=== PATIENT | female | born 1980 | race Caucasian/White ===

== ENCOUNTER 2019-05-09 18:33 | Emergency (ER) | payer MEDICAID ==
[~2019-05-09] VITALS: Ht 149.9 cm; Wt 99.1 kg
[~2019-05-09 18:33] MED LIST: NITR0.4T41 SL; [UNRECOGNIZED DRUG - REMARK]
[2019-05-09 18:40] VITALS: BP 150/85
--- NOTE | 2019-05-09 18:54 | NUR ---
REPORT TO MARY ARDON
== END 2019-05-09 19:25 | disposition home or self-care (01) ==
LOC: ED 18:50
DX: H66.001 Acute suppurative otitis media without spontaneous rupture of ear drum, right ear (principal); H92.03 Otalgia, bilateral
CPT/HCPCS: 99283

== ENCOUNTER 2020-04-10 17:26 | Emergency (ER) | payer MEDICAID ==
[~2020-04-10] VITALS: Ht 149.9 cm; Wt 102.3 kg
[2020-04-10 17:59] LABS: BASOPHILS % (AUTO) 1 % (0-1); EOSINOPHILS % (AUTO) 2 % (1-7); LYMPHOCYTES % (AUTO) 30 % (22-44); MEAN CORPUSCULAR HGB CONC 33.6 g/dL (32.4-35.8); MEAN PLATELET VOLUME 7.5 fL (7.4-10.4); MONOCYTES % (AUTO) 8 % (2-9); NEUTROPHILS % (AUTO) 60 % (42-75); PLATELET COUNT 408 x10^3/uL (130-400); RED BLOOD COUNT 4.68 x10^6/uL (3.82-5.3); RED CELL DISTRIBUTION WIDTH 14.8 % (9.6-15.2)
[2020-04-10 18:01] LABS: MD NO
[2020-04-10 18:11] LABS: ALANINE AMINOTRANSFERASE 26 U/L (12-78); ALBUMIN 3.5 g/dL (3.4-5.0); ANION GAP 6 mmol/L (5-15); CALCIUM 8.4 mg/dL (8.5-10.1); CHLORIDE 109 mmol/L (98-107); CREATININE 0.85 mg/dL (0.55-1.02)
[2020-04-10 18:16] LABS: ALKALINE PHOSPHATASE 105 U/L (45-117); BILIRUBIN,TOTAL 0.2 mg/dL (0.2-1.0); TOTAL PROTEIN 7.7 g/dL (6.4-8.2)
--- NOTE | 2020-04-10 19:47 | NUR ---
pt to room from lobby
--- NOTE | 2020-04-10 19:54 | NUR ---
PT AMBULATED TO RESTROOM WITH STEADY GAIT TO PROVIDE URINE SAMPLE. UA COLLECTED AND SENT TO LAB.
[2020-04-10 20:15] VITALS: BP 150/87
[2020-04-10 21:02] LABS: MICROSCOPIC INDICATED
--- NOTE | 2020-04-10 21:12 | NUR ---
ALL RESULTS ARE BACK AT THIS TIME. CHART UP FOR RECHECK.
== END 2020-04-10 21:54 | disposition home or self-care (01) ==
LOC: ED 20:54
DX: N30.00 Acute cystitis without hematuria (principal); H92.09 Otalgia, unspecified ear; K59.00 Constipation, unspecified
CPT/HCPCS: 36415; 76700; 80053; 81001; 83690; 84703; 85025; 87077; 87086; 87186; 99284